=== PATIENT | female | born 1985 | race Caucasian/White ===

== ENCOUNTER 2017-02-05 09:06 | Emergency (ER) | payer BC, OTHER ==
[2017-02-05 09:19] VITALS: RESP 18; O2SAT 95
--- NOTE | 2017-02-05 09:52 | EDPHY ---
H & P Stated Complaint: L CALF PAIN/AFTER TRAVELLING Time Seen by Provider: 02/05/17 09:23 HPI/ROS: Chief Complaint: Calf pain HPI: 31-year-old woman presenting with 2 weeks of calf pain. Patient states she travel to [place] 2 weeks ago. When she came back she started having intermittent calf pain. She has been running on it. Had some some possible swelling. No redness or rash. No fevers or chills. No chest pain or shortness of breath. No cough. She does not smoke. She is not on control. ROS: 10 point Review of Systems is negative except as noted in the HPI. PMH: Hypothyroidism Social History: No smoking Family History: non-contributory Physical Exam: Gen: Awake, Alert, No Distress HEENT: Nose: no rhinorrhea Eyes: PERRLA, EOMI Mouth: Moist mucosa Neck: Supple, no JVD Chest: nontender, lungs clear to auscultation Heart: S1, S2 normal, no murmur Abd: Soft, non-tender, no guarding Back: no CVA tenderness, no midline tenderness Ext: no edema, mild left calf tenderness. No left calf swelling. Right and left calves are the same diameter at measured. No edema, no redness, no erythema. Skin: no rash Neuro: CN II-XII intact, Sensation grossly intact, Strength 5/5 in bilateral upper and lower extremities - Personal History LMP (Females 10-55): Unknown Current Tetanus Diphtheria and Acellular Pertussis (TDAP): Yes Tetanus Vaccine Date: 01/05/2017 - Medical/Surgical History Hx Asthma: No Hx Chronic Respiratory Disease: No Hx Diabetes: No Hx Cardiac Disease: No Hx Renal Disease: No Hx Cirrhosis: No Hx Alcoholism: No Hx HIV/AIDS: No Hx Splenectomy or Spleen Trauma: No Other PMH: THYROID - Social History Smoking Status: Never smoked Constitutional: Initial Vital Signs Heart Rate 62 02/05/17 09:16 Respiratory Rate 18 02/05/17 09:16 Blood Pressure 129/77 H 02/05/17 09:16 O2 Sat (%) 95 02/05/17 09:16 O2 Delivery Mode Room Air Allergies/Adverse Reactions: No Known Allergies Allergy (Unverified 02/05/17 09:16) Home Medications: Medication Instructions Recorded Synthroid 137 mcg (*) 02/05/17 Medical Decision Making - Diagnostics Imaging Results: Left leg ultrasound is negative for DVT. She does have a 2 cm peña cyst. Study was interpreted by Dr. Doe. Imaging: Discussed imaging studies w/ banquet server on call Radiologist ED Course/Re-evaluation: No DVT. Patient does have a Peña cyst. She will be discharged with follow up with her primary care physician as an outpatient as needed. Departure - Departure Disposition: Home, Routine, Self-Care Clinical Impression: Peña cyst Condition: Good Instructions: Bakers Cyst (ED) Additional Instructions: Follow up with your primary care physician for any concerns. Referrals: Umair Grimes MD [Medical Doctor] - As per Instructions
[2017-02-05 10:39] VITALS: BP 130/80; PULSE 72; TEMP 97.7
== END 2017-02-05 10:38 | disposition home or self-care (01) ==
LOC: CED 09:06
DX: M71.22 Synovial cyst of popliteal space [Baker], left knee (principal)
CPT/HCPCS: 93971-PO

== ENCOUNTER → 2017-02-18 | Outpatient (CLI) | payer BC | LOC: CIMAGING 09:28 | PROVIDERS: ATTEND Family Medicine | DX: M25.462 Effusion, left knee (principal) | CPT/HCPCS: 73560-PO ==

== ENCOUNTER → 2018-04-05 | Outpatient (CLI) | payer BC | LOC: FIMAGING 07:48 | PROVIDERS: ATTEND Family Medicine Sports Medicine | DX: M53.3 Sacrococcygeal disorders, not elsewhere classified (principal); M51.36 Other intervertebral disc degeneration, lumbar region; M76.891 Other specified enthesopathies of right lower limb, excluding foot; M76.892 Other specified enthesopathies of left lower limb, excluding foot; Z15.89 Genetic susceptibility to other disease ==

== ENCOUNTER → 2018-06-07 | Outpatient (CLI) | payer BC | LOC: FIMAGING 09:00 | PROVIDERS: ATTEND Family Medicine Sports Medicine | DX: M25.462 Effusion, left knee (principal); M65.9 Synovitis and tenosynovitis, unspecified ==